=== PATIENT | male | born 1980 | race Caucasian/White ===

== ENCOUNTER 2017-10-27 17:22 | Emergency (ER) | payer OTHER ==
[2017-10-27 17:26] VITALS: BP 115/65; PULSE 76; RESP 16; TEMP 98.4; O2SAT 98; BMI 36.9
--- NOTE | 2017-10-27 18:28 | ED PDOC ---
Upper Extremity Pain/Injury Time Seen by Provider: 10/27/17 17:39 Chief Complaint (Nursing): Upper Extremity Problem/Injury Chief Complaint (Provider): Right Clavicle Pain History Per: Patient History/Exam Limitations: no limitations Onset/Duration Of Symptoms: Hrs (a [employer]) Current Symptoms Are (Timing): Still Present Additional Complaint(s): 37 year old male presents to the ED for evaluation of right collar bone pain. He states that he works for the [employer], and while pulling himself up out off the tracks, felt a pop to his right clavicle. He notes there is localized pain there , but did not take any medications prior to arrival. Otherwise, (-) other complaints, (-) falls / trauma, (-) prior shoulder injury. PMD: none provided Past Medical History Reviewed: Historical Data, Nursing Documentation, Vital Signs Vital Signs: Last Vital Signs Temp 98.4 F 10/27/17 17:25 Pulse 76 10/27/17 17:25 Resp 16 10/27/17 17:25 BP 115/65 10/27/17 17:25 Pulse Ox 98 10/27/17 17:25 - Medical History PMH: No Chronic Diseases - Surgical History Surgical History: No Surg Hx - Family History Family History: States: Unknown Family Hx - Social History Current smoker - smoking cessation education provided: No Alcohol: None Drugs: Denies - Home Medications Home Medications: Ambulatory Orders Medication Instructions Recorded Ibuprofen [Motrin Tab] 800 mg PO Q8 #21 tab 10/27/17 - Allergies Allergies/Adverse Reactions: Allergies Allergy/AdvReac Type Severity Reaction Status Date / Time No Known Allergies Allergy Verified 10/27/17 17:31 Review of Systems ROS Statement: Except As Marked, All Systems Reviewed And Found Negative Musculoskeletal: Positive for: Other (right clavicle pain) Physical Exam - Reviewed Nursing Documentation Reviewed: Yes Vital Signs Reviewed: Yes - Physical Exam Comments: GENERAL APPEARANCE: Patient is awake, alert, oriented x 3, in no acute distress. Resting comfortably, on cell phone. SKIN: Warm, dry; (-) cyanosis. NECK: Supple ENT: Mucus membranes moist. RIGHT UPPER EXTREMITY: Clavicle: (+) tenderness to medial aspect, (-) skin tenting, (-) deformity (-) ecchymosis (-) swelling. Shoulder: Full ROM, (-) tenderness (-)effusion (-) ecchymosis (-) erythema. Rn Cardiac Rehab strength equal. Sensation and cap refill intact. HEART AND CARDIOVASCULAR: (-) irregularity; (-) murmur CHEST AND RESPIRATORY: (-) rales, (-) rhonchi, (-) wheezes; breath sounds equal. Respirations even and nonlabored. NEURO AND PSYCH: Mental status as above. Gait steady, speech clear. (-) facial asymmetry. - ECG O2 Sat by Pulse Oximetry: 98 (RA) Pulse Ox Interpretation: Normal Medical Decision Making Medical Decision Making: Time: 1820 Initial Impression: clavicle injury Initial Plan: --Right clavicle XR --Re-evaluation --Patient declined pain medication. 1909 Clavicle XR reviewed: (-) fracture Patient advised that official radiology read of XR is still pending and will call the patient if there is any discrepancy within 24 hours. On re-evaluation, patient offers no other complaints. On exam, patient remains AAOx3, in no acute distress. On exam, neck is supple, lungs CTA, cardiac RRR, abdomen is soft and non-tender, neuro exam shows no focal findings. VSS, stable for discharge. Diagnostic results d/w the patient in great detail. Dx of clavicle injury d/w the patient. Based on history, exam and diagnostic results plan will be for discharge and outpatient ortho follow up. Advised to follow up with primary care physician in 1-2 days without fail. Advised to take medication as prescribed. Return to the emergency room at any time for any new or worsening symptoms. Patient states he fully agrees with and understands discharge instructions. States that he agrees with the plan and disposition. Verbalized and repeated discharge instructions and plan. I have given the patient opportunity to ask any additional questions. Scribe Attestation: Documented by Melinda Gonzales, acting as a scribe for Alondra Howell PA-C. Provider Scribe Attestation: All medical record entries made by the Scribe were at my direction and personally dictated by me. I have reviewed the chart and agree that the record accurately reflects my personal performance of the history, physical exam, medical decision making, and the department course for this patient. I have also personally directed, reviewed, and agree with the discharge instructions and disposition. Disposition - Clinical Impression Clinical Impression: Clavicle pain - Patient ED Disposition Is Patient to be Admitted: No Counseled Patient/Family Regarding: Studies Performed, Diagnosis - Disposition Referrals: Sandra Dahl MD [Staff Provider] - Disposition: Routine/Home Disposition Time: 19:12 Condition: STABLE Additional Instructions: FOLLOW UP WITH ORTHO FOR FURTHER EVALUATION RETURN TO ED WITH ANY NEW OR WORSENING SYMPTOMS Prescriptions: Ibuprofen [Motrin Tab] 800 mg PO Q8 #21 tab Instructions: Muscle and Bone Pain (DC) Forms: [facility] ([place]) Print Language: LITHUANIAN - POA Present On Arrival: None
--- NOTE | 2017-10-28 07:02 | RAD ---
Date of service: 10/27/2017 HISTORY: WORK INJURY "POP" COMPARISON: No prior FINDINGS: BONES: Normal. No fracture. JOINTS: Normal. No osteoarthritis. SOFT TISSUE: Normal. OTHER FINDINGS: None . IMPRESSION: Normal Bone Xray.
== END 2017-10-27 19:29 | disposition home or self-care (01) ==
LOC: H.ER 17:22
DX: M25.511 Pain in right shoulder (principal); X50.9XXA Other and unspecified overexertion or strenuous movements or postures, initial encounter; Y99.0 Civilian activity done for income or pay